=== PATIENT | female | born 1955 | race Caucasian/White ===

== ENCOUNTER → 2023-07-04 | Outpatient (CLI) | payer MEDICARE, MEDICAID | END | disposition home or self-care (01) | LOC: RAD 09:39 | DX: M17.0 Bilateral primary osteoarthritis of knee (principal) | CPT/HCPCS: 73562 ==

== ENCOUNTER → 2024-01-14 | Outpatient (CLI) | payer MEDICARE, MEDICAID ==
[~2024-01-14] MED LIST: OXYC-100 MT
== END | disposition home or self-care (01) ==
LOC: RAD 12:32
DX: M17.12 Unilateral primary osteoarthritis, left knee (principal); Z96.652 Presence of left artificial knee joint
CPT/HCPCS: 73560

== ENCOUNTER → 2024-12-23 | Day surgery (SDC) | payer MEDICARE, MEDICAID ==
[~2024-12-23] VITALS: Ht 147.3 cm; Wt 63.5 kg
[~2024-12-23] MED LIST changes: +ATEN-42 PO; +BUPIVACAINE HCL/PF 0.5% (5MG/ML) 10ML ONE; +CALC-1139 PO; +DEXT 5%/0.45% NACL 1000ML 1,000 ML IV SCH; +ETOMIDATE 2MG/ML 10ML VIAL IV ONE; +FENTANYL CITRATE/PF 50MCG/ML 2ML VIAL ONE; +HYDROMORPHONE HCL/PF 1MG/ML INJ IV PRN; +INSU100I33 SQ; +LABETALOL 5MG/ML 4ML INJ IV PRN; +MEPERIDINE HCL/PF 25MG/ML CPJ IV PRN; +METF750T46 PO; +MIDAZOLAM HCL 2 MG/2 ML VIAL ONE; +OMEP40CA20 PO; +ONDANSETRON HCL 4MG/2ML INJ IV PRN; -OXYC-100 MT; +SEMA0.258 SUBCUT; +SIMV-46 PO; +SODIUM CHLORIDE 0.9% 1,000 ML IV SCH
[2024-12-23 15:34] VITALS: BP 127/73; PULSE 80; RESP 19
[2024-12-23] MEDS: ACETAMINOPHEN WITH CODEINE 300/30MG TABLET PO NR (15:34)
== END | disposition home or self-care (01) ==
LOC: OR 08:24
PROVIDERS: ATTEND Surgery
DX: R22.32 Localized swelling, mass and lump, left upper limb (principal); L72.3 Sebaceous cyst; I10 Essential (primary) hypertension; E11.9 Type 2 diabetes mellitus without complications; E78.5 Hyperlipidemia, unspecified; M19.90 Unspecified osteoarthritis, unspecified site; Z79.84 Long term (current) use of oral hypoglycemic drugs; Z79.899 Other long term (current) drug therapy; Z98.890 Other specified postprocedural states; Z86.2 Personal history of diseases of the blood and blood-forming organs and certain disorders involving the immune mechanism
CPT/HCPCS: 11406; 88304; 82962; J3010; J0665; J3490; J2250